=== PATIENT | female | born 1945 | race Two or more races ===

== ENCOUNTER 2024-01-05 08:23 | Inpatient (IN) | payer MEDICARE, MEDICAID ==
[~2024-01-05] VITALS: Ht 154.9 cm; Wt 83.0 kg
[2024-01-05 09:24] LABS: Urine Bacteria None Seen /hpf (None Seen); Urine WBC None Seen /hpf (0 - 5)
[2024-01-05] MEDS: SODIUM CHLORIDE 0.9% 1,000 ML IV ONE (09:56)
[2024-01-05 10:02] LABS: Urine Blood Negative /uL (Negative); Urine Clarity Clear (Clear); Urine Color Light-Yellow (Yellow); Urine Protein, UAD Negative (Negative); Urine Specific Gravity 1.008 (1.001-1.035); Urine Urobilinogen Normal (Negative)
[2024-01-05 10:44] LABS: Alanine Aminotransferase 23 U/L (7-40); Albumin 4.4 g/dL (3.2-4.8); Alkaline Phosphatase 69 U/L (46-116); Anion Gap 5 (5-15); Aspartate Aminotransferase 21 U/L (13-40); BUN/Creatinine Ratio 21.9 (10.0-20.0); Blood Urea Nitrogen 16 mg/dL (9-23); Carbon Dioxide 31 mmol/L (20-30); Chloride 103 mmol/L (98-107); Glucose 153 mg/dL (74-106); Potassium 4.4 mmol/L (3.5-5.1); Sodium 139 mmol/L (136-145)
[2024-01-05 10:45] LABS: Bilirubin, Total 0.7 mg/dL (0.2-1.0); Phosphorus 4.6 mg/dL (2.4-5.1); Total Protein 7.4 g/dL (5.7-8.2)
[2024-01-05 11:07] LABS: Basophils # (auto) 0 10 ^3/uL (0-0.2); Basophils % (auto) 0.5 % (0.0-2.0); Eosinophils # (auto) 0 10 ^3/uL (0-0.8); Eosinophils % (auto) 0.9 % (0.0-7.0); Hematocrit 42.7 % (36.0-46.0); Hemoglobin 14.4 g/dL (12.2-16.2); Lymphocytes # (auto) 1.8 10 ^3/uL (0.4-5.4); Mean Corpuscular Hemoglobin 31.1 pg (28.0-32.0); Mean Corpuscular Hgb Conc. 33.8 g/dL (32.0-36.0); Mean Corpuscular Volume 92.1 fL (80.0-100.0); Monocytes # (auto) 0.4 10 ^3/uL (0-1.3); Monocytes % (auto) 6.8 % (0.0-12.0); Neutrophils # (auto) 3.3 10 ^3/uL (1.6-8.6); Neutrophils % (auto) 59.8 % (37.0-80.0); Nucleated Red Blood Cells % 0.1 %; Red Blood Cells 4.64 10^6/uL (4.0-5.20); Red Cell Distribution Width 13.1 % (11.8-14.3); White Blood Cell 5.6 10^3/uL (4.4-10.8)
[2024-01-05] MEDS ORDERED: MORPHINE SULFATE INJ 2 MG/ml SYRG IV PRN (11:45)
[2024-01-05] MEDS ORDERED: DOCUSATE SOD 100 MG CAP PO PRN (11:45)
[2024-01-05] MEDS ORDERED: ONDANSETRON HCL 4 MG/2 ML VIAL IV PRN (11:45)
[2024-01-05] MEDS ORDERED: LOPERAMIDE HCL 2 MG CAP/TAB PO PRN (12:45)
[2024-01-05] MEDS: SODIUM CHLORIDE 0.9% 1,000 ML IV SCH (13:46)
[2024-01-05] MEDS: metroNIDAZOLE 500MG/100ML 100 ML IV ONE (13:47)
[2024-01-05] MEDS ORDERED: DEXTROSE (50%) 50ML SYRG IV PRN (14:30)
[2024-01-05 16:14] VITALS: PULSE 55; RESP 18; O2SAT 96
[2024-01-05] MEDS: ACCU-CHEK COMFORT CURVE STRIP VI SCH (17:10)
[2024-01-05] MEDS: InsuLIN REG 1unit/0.01ml Soln (100units/ml) SC SCH (17:13)
[2024-01-05] MEDS: DICYCLOMINE HCL 10 MG CAP PO SCH (18:00)
[2024-01-05 20:00] VITALS: PULSE 75; RESP 18; O2SAT 96
[2024-01-05 21:00] VITALS: BP 147/73; PULSE 72; RESP 20; TEMP 98; O2SAT 92
[2024-01-05] MEDS ORDERED: LEVO88TA4 PO (21:01)
[2024-01-05] MEDS ORDERED: ROSU10TA16 PO (21:01)
[2024-01-05] MEDS ORDERED: EMPA1TAB PO (21:01)
[2024-01-05] MEDS ORDERED: LISI-285 PO (21:01)
[2024-01-05] MEDS ORDERED: INSU70IN3 SC (21:04)
[2024-01-05] MEDS ORDERED: CARV3.1240 PO (21:05)
[2024-01-05] MEDS: metroNIDAZOLE 500MG/100ML 100 ML IV SCH (22:01)
[2024-01-06 04:52] VITALS: BP 134/56; PULSE 62; RESP 20; TEMP 98.2; O2SAT 95
[2024-01-06 05:41] LABS: Basophils # (auto) 0 10 ^3/uL (0-0.2); Basophils % (auto) 0.5 % (0.0-2.0); Eosinophils # (auto) 0.1 10 ^3/uL (0-0.8); Eosinophils % (auto) 2.4 % (0.0-7.0); Hematocrit 39.7 % (36.0-46.0); Hemoglobin 13.3 g/dL (12.2-16.2); Lymphocytes % (auto) 36.6 % (10.0-50.0); Mean Corpuscular Hemoglobin 30.7 pg (28.0-32.0); Mean Corpuscular Hgb Conc. 33.4 g/dL (32.0-36.0); Mean Corpuscular Volume 91.8 fL (80.0-100.0); Monocytes # (auto) 0.6 10 ^3/uL (0-1.3); Monocytes % (auto) 11.9 % (0.0-12.0); Neutrophils # (auto) 2.6 10 ^3/uL (1.6-8.6); Neutrophils % (auto) 48.6 % (37.0-80.0); Nucleated Red Blood Cells % 0.2 %; Red Blood Cells 4.33 10^6/uL (4.0-5.20); Red Cell Distribution Width 13.2 % (11.8-14.3); White Blood Cell 5.4 10^3/uL (4.4-10.8)
[2024-01-06 05:58] LABS: Alanine Aminotransferase 18 U/L (7-40); Albumin 3.9 g/dL (3.2-4.8); Alkaline Phosphatase 59 U/L (46-116); Anion Gap 6 (5-15); Aspartate Aminotransferase 14 U/L (13-40); BUN/Creatinine Ratio 22.7 (10.0-20.0); Bilirubin, Total 0.6 mg/dL (0.2-1.0); Blood Urea Nitrogen 17 mg/dL (9-23); Calcium 9.5 mg/dL (8.5-10.1); Carbon Dioxide 30 mmol/L (20-30); Chloride 108 mmol/L (98-107); Glucose 168 mg/dL (74-106); Potassium 4.5 mmol/L (3.5-5.1); Sodium 144 mmol/L (136-145); Total Protein 6.4 g/dL (5.7-8.2)
[2024-01-06 08:00] VITALS: BP 135/53; PULSE 63; RESP 16; TEMP 98; O2SAT 92
[2024-01-06] MEDS: FLORASTOR (S. BOULARDII) 250 MG CAP PO SCH (10:06)
[2024-01-06 12:00] VITALS: BP 118/56; PULSE 59; RESP 16; TEMP 98; O2SAT 96
[2024-01-06 16:00] VITALS: BP 120/60; PULSE 63; RESP 16; TEMP 98; O2SAT 95
[2024-01-06 20:30] VITALS: PULSE 58; RESP 18; O2SAT 94
[2024-01-06 21:00] VITALS: BP 141/106; PULSE 58; RESP 17; TEMP 97.7; O2SAT 96
[2024-01-06] MEDS: CARVEDILOL 3.125 MG TAB PO SCH (22:22)
[2024-01-07 01:04] VITALS: BP 162/50; PULSE 63; RESP 17; TEMP 97.9; O2SAT 96
[2024-01-07 05:00] VITALS: BP 144/56; PULSE 58; RESP 18; TEMP 97.7; O2SAT 99
[2024-01-07] MEDS: LEVOTHYROXINE SODIUM 100 MCG TAB PO SCH (06:10)
[2024-01-07 07:34] LABS: Anion Gap 5 (5-15); Carbon Dioxide 29 mmol/L (20-30); Chloride 104 mmol/L (98-107); Potassium 4.7 mmol/L (3.5-5.1); Sodium 138 mmol/L (136-145)
[2024-01-07 07:35] LABS: Calcium 9.5 mg/dL (8.5-10.1)
[2024-01-07 07:40] LABS: Glucose 170 mg/dL (74-106)
[2024-01-07 07:41] LABS: Blood Urea Nitrogen 15 mg/dL (9-23); LDL Cholesterol 74 mg/dL (< 100); Magnesium 1.9 mg/dL (1.6-2.6); Triglycerides 152 mg/dL (< 150)
[2024-01-07 07:42] LABS: Cholesterol 146 mg/dL (< 200); HDL Cholesterol 47 mg/dL (40-59)
[2024-01-07 08:00] VITALS: PULSE 56; RESP 16; O2SAT 99
[2024-01-07 08:28] VITALS: BP 148/94; PULSE 56; RESP 16; TEMP 98; O2SAT 99
[2024-01-07] MEDS: LISINOPRIL 5 MG TAB PO SCH (09:07)
[2024-01-07] MEDS: ENOXAPARIN SOD 30 MG/0.3 ML SYRINGE SC SCH (09:09)
[2024-01-07 11:07] LABS: Anti-Nuclear Antibody Direct Negative (Negative)
[2024-01-07] MEDS: INSULIN LANTUS (GLARGINE) 1 /0.01ml (100units/ml) SC SCH (11:58)
[2024-01-07 17:00] VITALS: BP 123/42; PULSE 57; RESP 19; TEMP 97.7; O2SAT 97
[2024-01-07 17:47] VITALS: BP 123/42; PULSE 57; RESP 19; TEMP 97.7; O2SAT 97
[2024-01-07] MEDS ORDERED: ATORVASTATIN 20 MG TAB PO SCH (22:00)
[2024-01-09 09:33] LABS: Hepatitis B Surface Antigen Negative (Negative)
[2024-01-09 09:58] LABS: Hepatitis C Antibody Negative (Negative)
[2024-01-09 10:42] LABS: t-Transglutaminase (tTG) IgA <2 U/mL (0-3)
== END 2024-01-07 18:50 | disposition home or self-care (01) | DRG 392 ==
LOC: ER 08:23 → OVERFLOW 12:28 → EAST 18:29
PROVIDERS: ADMIT Internal Medicine; ATTEND Emergency Medicine
DX: A08.4 Viral intestinal infection, unspecified (principal); F17.210 Nicotine dependence, cigarettes, uncomplicated; I27.20 Pulmonary hypertension, unspecified; M79.7 Fibromyalgia; M10.9 Gout, unspecified; J45.909 Unspecified asthma, uncomplicated; I48.91 Unspecified atrial fibrillation; E03.9 Hypothyroidism, unspecified; E11.65 Type 2 diabetes mellitus with hyperglycemia; E11.40 Type 2 diabetes mellitus with diabetic neuropathy, unspecified; E66.9 Obesity, unspecified; K57.30 Diverticulosis of large intestine without perforation or abscess without bleeding; D64.9 Anemia, unspecified; I11.0 Hypertensive heart disease with heart failure; I50.9 Heart failure, unspecified; Z88.0 Allergy status to penicillin; Z88.8 Allergy status to other drugs, medicaments and biological substances; Z88.6 Allergy status to analgesic agent; Z91.041 Radiographic dye allergy status; Z79.899 Other long term (current) drug therapy; Z90.49 Acquired absence of other specified parts of digestive tract; Z68.34 Body mass index [BMI] 34.0-34.9, adult
CPT/HCPCS: 36415; 74176; 80048; 80053; 80061; 81001; 82962; 83036; 83735; 84100; 84443; 85025; 86038; 86803; 87340; 96360; G0378; J1815; J3490